=== PATIENT | female | born 1990 | race Caucasian/White ===

== ENCOUNTER → 2021-10-18 | Outpatient (CLI) | payer BC ==
[2021-10-18 13:10] VITALS: BP 132/82; PULSE 111; TEMP 98; BMI 49.6
--- NOTE | 2021-10-18 14:45 | P.HPBAR ---
Bariatric H&P - History & Physicial H&P Date: 10/18/21 History & Physicial: Visit/CC: initial clinic visit Patient initial contact: Initial weight: Initial weight in pounds: Height: 5 ft 6.5 in Initial BMI: Last weight: Current weight: 141.521 kg Current weight in pounds: 312.00 Current BMI: 49.6 [place] body weight (based on NIH guidelines): 60.101 kg Excess body weight loss: The patient is a 31 year-old F who presents for Bariatric Assessment. Patient here today to discuss surgical options for her weight loss. Patient has tried various medically supervised weight loss diets and also multiple medications without sustained weight loss. Her heaviest weight was 316. She says her lowest weight she can usually get to was about 255. Current BMI is 49.6. Patient has occasional episodes of heartburn with spicy foods. She will take Tums on the occasional basis. Denies dysphagia. Patient states she has a sleep apnea study ordered. No tobacco use. Prior surgeries include lap jayy and tonsils. Patient is interested in sleeve gastrectomy at this time. Review of Systems The patient denies any acute changes in vision or hearing, no dysphagia or odynophagia, no chest pain or shortness of breath, no dysuria or hematuria, no headache, no runny nose, no rectal bleeding or melena, no unexplained weight loss Past Medical History Past Medical History: Osteoarthritis (OA), Sleep Apnea/CPAP/BIPAP History of Any Multi-Drug Resistant Organisms: None Reported Past Surgical History: Adenoidectomy, Cholecystectomy, Tonsillectomy Past Anesthesia/Blood Transfusion Reactions: No Reported Reaction Past Psychological History: Anxiety Smoking Status: Never smoker Past Drug Use History: None Reported Surgical - Exam Vital Signs Temp Pulse BP 98 F 111 H 132/82 10/18/21 13:06 10/18/21 13:06 10/18/21 13:06 Physical exam: General: Well-developed, well-nourished HEENT: Normocephalic, sclerae nonicteric Abdomen: Nontender, nondistended Extremities: No edema Neuro: Alert and oriented Bariatric Assessment & Plan (1) Morbid obesity Narrative/Plan: 31-year-old female with morbid obesity. Surgical options including gastric bypass and sleeve gastrectomy reviewed in detail. The associate risks and benefits and expected weight loss also discussed in detail. Patient remains interested in sleeve gastrectomy at this time. Discussed options but we'll proceed with preoperative upper endoscopy in the next few months. Patient will follow up with us in the bariatric clinic following that. Status: Acute Bariatric Checklist Checklist: Plan: Checklist: EGD: 1. Hiatal hernia: 2. H. Pylori: HgbA1c: Vitamin D: Smoking: Primary care physician referral: Psychiatry clearance: Cardiology clearance: Sleep study: Diet journal: VTE risk score: VTE risk level: Rehab needs at discharge:
[2021-10-18 23:30] LABS: HCT 38.5 % (37.2-46.3); HGB 11.9 g/dL (12.0-15.0); MCH 28.5 pg (27.0-32.0); MCHC 30.9 g/dL (32.0-37.0); MCV 92.3 fL (80.0-97.0); Mean Platelet Volume 10.1 fL (9.5-12.2); NRBC Per 100 WBC 0 /100 WBCS (0.0-0.0); Platelet Count 305 X 10*3/uL (140-440); RBC 4.17 X 10*6/uL (4.10-5.20); RDW 13.8 % (11.5-14.5); WBC 13.98 X 10*3/uL (4.50-10.00)
[2021-10-19 01:04] LABS: % Iron Saturation 9.06 (12.00-45.00); ALT 18 U/L (8-44); AST 16 U/L (13-35); African American GFR (CKD) 93.3 (60.0-200.0); Albumin 4.2 g/dL (3.8-4.9); Albumin/Globulin Ratio 1.41 (1.60-3.17); Alkaline Phosphatase 69 U/L (41-126); BUN/Creat Ratio 16.63 Ratio (12.00-20.00); Blood Urea Nitrogen 15.6 mg/dL (9.0-27.0); Calcium 9.3 mg/dL (8.7-10.3); Carbon Dioxide 23.4 mmol/L (20.0-27.5); Chloride 106 mmol/L (96-109); Ferritin 77.1 ng/mL (10.0-291.0); Glucose 96 mg/dL (70-110); Iron 34 ug/dL (50-170); Non-African American GFR(CKD) 80.5 (60.0-200.0); Potassium 4.1 mmol/L (3.5-5.5); Sodium 142 mmol/L (135-145); Total Bilirubin <0.15 mg/dL (0.30-1.20); Total Iron Binding Capacity 370 ug/dL (228-460); Total Protein 7.2 g/dL (6.2-8.2)
== END | disposition home or self-care (01) ==
LOC: BARWHC3 12:19
PROVIDERS: ATTEND Surgery
DX: E66.01 Morbid (severe) obesity due to excess calories (principal); D50.8 Other iron deficiency anemias; E44.0 Moderate protein-calorie malnutrition; E55.9 Vitamin D deficiency, unspecified
CPT/HCPCS: 80053; 80307; 82306; 82607; 82728; 82746; 83540; 83550; 84425; 84443; 85027; 93005; 99202

== ENCOUNTER 2021-11-13 10:43 | Day surgery (SDC) | payer BC ==
[2021-11-09 14:55] VITALS: BMI 49.4
[~2021-11-13 10:43] MED LIST: LACTATED RINGERS 1,000 ML IV SCH; LIDOCAINE 1% (10MG/ML) FOR IV START INTRADERMA PRN; ONDANSETRON 4 MG/2 ML VIAL IVP PRN
[2021-11-13 11:39] VITALS: TEMP 98.3
[2021-11-13] MEDS ORDERED: PROPOFOL 10 MG/ML 20 ML VIAL IV ONE (12:04)
[2021-11-13] MEDS ORDERED: LIDOCAINE 2% INJ 20 MG/ML (2 ML VIAL) ONE (12:04)
--- NOTE | 2021-11-13 12:06 | P.GSHP ---
History of Present Illness H&P Date: 11/13/21 Chief Complaint: GERD 31-year-old female here today for upper endoscopy. Patient is being evaluated for sleep gastrectomy. Mild reflux at times. No dysphagia. Past Medical History Past Medical History: Osteoarthritis (OA), Sleep Apnea/CPAP/BIPAP History of Any Multi-Drug Resistant Organisms: None Reported Past Surgical History: Adenoidectomy, Cholecystectomy, Tonsillectomy Past Anesthesia/Blood Transfusion Reactions: No Reported Reaction Additional Past Anesthesia/Blood Transfusion Reaction / Comment(s): "can take longer to wake up" Past Psychological History: Anxiety Smoking Status: Never smoker Past Alcohol Use History: None Reported Past Drug Use History: None Reported Medications and Allergies Home Medications Medication Instructions Recorded Confirmed Type Phentermine HCl 37.5 mg PO DAILY 10/18/21 11/13/21 History Topiramate [Topamax] 50 mg PO DAILY 10/18/21 11/13/21 History buPROPion XL [Wellbutrin XL] 150 mg PO HS 10/18/21 11/13/21 History Allergies Allergy/AdvReac Type Severity Reaction Status Date / Time No Known Allergies Allergy Verified 11/13/21 11:16 Surgical - Exam Vital Signs Temp Pulse Resp BP Pulse Ox 98.3 F 97 16 119/60 99 11/13/21 11:15 11/13/21 11:15 11/13/21 11:15 11/13/21 11:15 11/13/21 11:15 Physical exam: General: Well-developed, well-nourished HEENT: Normocephalic, sclerae nonicteric Abdomen: Nontender, nondistended Extremities: No edema Neuro: Alert and oriented Assessment and Plan (1) GERD (gastroesophageal reflux disease) Narrative/Plan: Will proceed with upper endoscopy Current Visit: Yes Status: Acute Code(s): K21.9 - GASTRO-ESOPHAGEAL REFLUX DISEASE WITHOUT ESOPHAGITIS SNOMED Code(s): 150002395
--- NOTE | 2021-11-13 12:16 | P.PCN ---
Date of Procedure: 11/13/21 Procedure(s) Performed: Preoperative Dx: GERD, presurgical Postoperative Dx: Gastritis, small hiatal hernia, mild distal esophagitis Procedure: EGD with Bx Anesthesia: Sedation Endoscopist: Dr. Mohr Specimens: Antrum, GE junction Endoscopic Procedure: The patient was on the endoscopy table in the left de cubitus position. The Olympus gastroscope was inserted into the oropharynx and passed under direct visualization to the region of the third portion of the duodenum. From that point the scope was slowly withdrawn inspecting all surfaces carefully. There were no neoplastic inflammatory or polypoid lesions throughout the duodenum. The pylorus was widely patent. The stomach was carefully inspected. There was mild gastritis present. A biopsy of the antrum took place to rule out H. pylori. Retroflexion revealed a small sliding hiatal hernia. The GE junction was present 1.5-2 cm above the diaphragmatic hiatus. At the GE junction there was noted to be very subtle narrowing present. This did not appear to be clinically significant. There were a few small linear erosions at the GE junction and a biopsy was taken. These were short in length. The remainder the esophagus appear normal. The patient was then taken to the recovery room in stable condition per anesthesia guidelines. Recommendations: Begin antiacid therapy. Await biopsy results. Follow-up bariatric clinic.
[2021-11-13 12:56] VITALS: BP 134/74; PULSE 86; RESP 20
== END 2021-11-13 12:52 | disposition home or self-care (01) ==
LOC: ORWHC2ENDO 10:43
PROVIDERS: ATTEND Surgery
DX: K29.50 Unspecified chronic gastritis without bleeding (principal); K21.00 Gastro-esophageal reflux disease with esophagitis, without bleeding; K44.9 Diaphragmatic hernia without obstruction or gangrene; M19.90 Unspecified osteoarthritis, unspecified site; G47.30 Sleep apnea, unspecified
CPT/HCPCS: 81025; 88305; 43239; J2704; J2001

== ENCOUNTER → 2021-12-04 | Outpatient (CLI) | payer BC ==
[2021-12-04 12:43] VITALS: BP 117/87; PULSE 96; TEMP 98; BMI 49.4
--- NOTE | 2021-12-04 13:09 | P.BASOAP ---
Subjective Progress Note Date: 12/04/21 Principal diagnosis: Morbid obesity Patient returns for bariatric evaluation. She underwent recent EGD showing mild gastritis, small hiatal hernia, mild distal esophagitis. Pathology results showing some eosinophils and food related esophagitis discussed with patient. We'll hold off on oral steroids for now. She had her sleep study performed in her psychiatric evaluation. She is starting her CPAP tomorrow. Otherwise no changes to her previous history and physical. Objective - Vital Signs Vital signs: Vital Signs Temp 98 F 12/04/21 12:41 Pulse 96 12/04/21 12:41 Resp BP 117/87 12/04/21 12:41 Pulse Ox FiO2 Intake & Output 12/03/21 12/04/21 12/04/21 18:59 06:59 18:59 Weight 141.067 kg - Exam Abdomen: Soft, nontender, nondistended Assessment/Plan (1) Morbid obesity Narrative/Plan: 31-year-old female with morbid obesity and comorbidities. Surgical consent form reviewed in detail. All questions answered. We'll proceed with laparoscopic da Lupis assisted sleeve gastrectomy with possible repair hiatal hernia, possible open. The risks of bleeding, infection, stenosis, stricture, leak, abscess, fistula formation, peritonitis, poor weight loss, reflux, vomiting, conversion to an open procedure, aborting sleeve gastrectomy, NE, PE, DVT, and were discussed. The patient understands and wishes to proceed. Plan: Date: 12/04/21 Initial Weight: Initial BMI: Current Weight: 141.067 kg Current BMI: 49.4 Type of Surgery: Total Volume in Band: Previous Volume: Volume Removed: Volume Added: Band Size:
== END | disposition home or self-care (01) ==
LOC: BARWHC3 12:20
PROVIDERS: ATTEND Surgery
DX: E66.01 Morbid (severe) obesity due to excess calories (principal); Z68.42 Body mass index [BMI] 45.0-49.9, adult
CPT/HCPCS: 99211

== ENCOUNTER → 2021-12-10 | Outpatient (CLI) | payer BC ==
[2021-12-10 10:41] VITALS: BMI 49.8
== END ==
LOC: BARWHC3 08:58
PROVIDERS: ATTEND Surgery
DX: Z71.3 Dietary counseling and surveillance (principal); E66.01 Morbid (severe) obesity due to excess calories; Z68.42 Body mass index [BMI] 45.0-49.9, adult
CPT/HCPCS: 97804

== ENCOUNTER → 2022-02-20 | Outpatient (CLI) | payer BC ==
[2022-02-20 14:52] LABS: Basophils # (A) 0.06 X 10*3/uL (0.00-0.10); Basophils % (A) 0.4 %; Eosinophils # (A) 0.17 X 10*3/uL (0.04-0.35); Eosinophils % (A) 1.1 %; HCT 38.1 % (37.2-46.3); HGB 12.1 g/dL (12.0-15.0); Immature Grans, Automated 0.4 %; Lymphocytes # (A) 2.68 X 10*3/uL (0.90-5.00); MCH 28.9 pg (27.0-32.0); MCHC 31.8 g/dL (32.0-37.0); MCV 90.9 fL (80.0-97.0); Mean Platelet Volume 10.1 fL (9.5-12.2); Monocytes # (A) 0.62 X 10*3/uL (0.20-1.00); Monocytes % (A) 3.9 %; NRBC Per 100 WBC 0 /100 WBCS (0.0-0.0); Neutrophils # (A) 12.17 X 10*3/uL (1.80-7.70); Neutrophils % (A) 77.2 %; Platelet Count 358 X 10*3/uL (140-440); RBC 4.19 X 10*6/uL (4.10-5.20); RDW 13.4 % (11.5-14.5); WBC 15.77 X 10*3/uL (4.50-10.00)
[2022-02-20 16:31] LABS: African American GFR (CKD) 97.9 (60.0-200.0); Albumin 4.3 g/dL (3.8-4.9); Albumin/Globulin Ratio 1.62 (1.60-3.17); Anion Gap 10.8 mmol/L (10.00-18.00); BUN/Creat Ratio 20.2 Ratio (12.00-20.00); Blood Urea Nitrogen 18.2 mg/dL (9.0-27.0); Calcium 9.3 mg/dL (8.7-10.3); Carbon Dioxide 22.7 mmol/L (20.0-27.5); Globulin 2.6 g/dL (1.6-3.3); Non-African American GFR(CKD) 84.5 (60.0-200.0); Potassium 3.9 mmol/L (3.5-5.5); Total Bilirubin 0.2 mg/dL (0.30-1.20); Total Protein 6.9 g/dL (6.2-8.2)
== END | disposition home or self-care (01) ==
LOC: LABPAT 09:44
PROVIDERS: ATTEND Surgery
DX: Z01.812 Encounter for preprocedural laboratory examination (principal)
CPT/HCPCS: 80053; 85025

== ENCOUNTER 2022-02-25 11:51 | Observation (INO) | payer BC ==
--- NOTE | 2022-02-25 10:21 | P.GSHP ---
History of Present Illness H&P Date: 02/25/22 Chief Complaint: Morbid obesity 31-year-old female first seen in the bariatric clinic in October of last year. Patient initially presented with a BMI of 49 which was similar to her most recent visit. Patient remains interested in sleeve gastrectomy. She has tried a variety of different diets and medications without sustained weight loss. Patient has mild heartburn symptoms and recent EGD showed a small hiatal hernia and some esophagitis. No history of tobacco use. Patient diagnosed with sleep apnea and was fitted for CPAP recently. No history of DVT or dysphagia. Past Medical History Past Medical History: GERD/Reflux, Osteoarthritis (OA), Sleep Apnea/CPAP/BIPAP Additional Past Medical History / Comment(s): uses cpap, arthritis to knees. endometriosis, lasik to eyes History of Any Multi-Drug Resistant Organisms: None Reported Past Surgical History: Adenoidectomy, Cholecystectomy, Orthopedic Surgery, Tonsillectomy Additional Past Surgical History / Comment(s): scopes done to both knees, exploratory lap of abdomen found edometriosis, Past Anesthesia/Blood Transfusion Reactions: No Reported Reaction Additional Past Anesthesia/Blood Transfusion Reaction / Comment(s): "can take longer to wake up", rubia sometimes Smoking Status: Never smoker - Past Family History Father Family Medical History: Hypertension Mother Family Medical History: Thyroid Disorder Medications and Allergies Home Medications Medication Instructions Recorded Confirmed Type Phentermine HCl 37.5 mg PO DAILY 10/18/21 02/20/22 History Topiramate [Topamax] 50 mg PO DAILY 10/18/21 02/20/22 History buPROPion XL [Wellbutrin XL] 150 mg PO HS 10/18/21 02/20/22 History Omeprazole [PriLOSEC] 20 mg PO AC-BRKFST #90 cap 11/13/21 02/20/22 Rx Unk Multi Vitamin 1 tab PO DAILY 02/20/22 02/20/22 History Allergies Allergy/AdvReac Type Severity Reaction Status Date / Time No Known Allergies Allergy Verified 02/20/22 12:23 Surgical - Exam Physical exam: General: Well-developed, well-nourished HEENT: Normocephalic, sclerae nonicteric Abdomen: Nontender, nondistended Extremities: No edema Neuro: Alert and oriented Assessment and Plan (1) Morbid obesity Narrative/Plan: 31-year-old female with morbid obesity and associated comorbidities. Patient also with recent upper endoscopy suggesting small hiatal hernia. We'll proceed with laparoscopic da Lupis assisted sleeve gastrectomy with possible hiatal hernia repair. The risks of bleeding, infection, stenosis, stricture, leak, abscess, fistula formation, peritonitis, poor weight loss, reflux, vomiting, conversion to an open procedure, aborting sleeve gastrectomy, [place], PE, DVT, and were discussed. The patient understands and wishes to proceed. Status: Acute Code(s): E66.01 - MORBID (SEVERE) OBESITY DUE TO EXCESS CALORIES SNOMED Code(s): 875061932
[~2022-02-25 11:51] MED LIST changes: +ACETAMINOPHEN TAB 500 MG TAB PO PRN; +ENOXAPARIN 40 MG/0.4 ML SYRINGE SQ PRN; +HYDROmorphone 0.5 MG/0.5 ML SYRINGE IVP PRN; -LACTATED RINGERS 1,000 ML IV SCH
[2022-02-25] MEDS: LACTATED RINGERS 1,000 ML IV SCH (12:38)
[2022-02-25] MEDS ORDERED: DEXAMETHASONE SOD PHOSPHATE 4 MG/ML 1 ML VIAL IVP ONE (12:39)
[2022-02-25] MEDS ORDERED: BUPIVACAIN-EPI 0.25%-1:200,000 30 ML VIAL SQ ONE (12:49)
[2022-02-25] MEDS ORDERED: MIDAZOLAM 2 MG/2 ML VIAL ONE (12:55)
[2022-02-25] MEDS ORDERED: WATER FOR INJECTION, STERILE 10 ML VIAL IV ONE (12:55)
[2022-02-25] MEDS ORDERED: ROCURONIUM 10 MG/ML (5 ML VIAL) IV ONE (12:55)
[2022-02-25] MEDS ORDERED: GLYCOPYRROLATE 0.2 MG/ML 2 ML VIAL ONE (12:55)
[2022-02-25] MEDS ORDERED: ePHEDrine 50 MG/ML 1 ML VIAL ONE (12:55)
[2022-02-25] MEDS ORDERED: SUCCINYLCHOLINE CHLORIDE 200 MG/10 ML VIAL IV ONE (12:55)
[2022-02-25] MEDS ORDERED: PHENYLEPHRINE-0.9% NACL SYG 1,000 MCG/10 ML SYRINGE ONE (12:55)
[2022-02-25] MEDS ORDERED: PROPOFOL 10 MG/ML 20 ML VIAL IV ONE (12:55)
[2022-02-25] MEDS ORDERED: LIDOCAINE 2% INJ 20 MG/ML (2 ML VIAL) ONE (12:55)
[2022-02-25] MEDS ORDERED: HYDROmorphone (PF) 1 MG/ML ONE (12:55)
[2022-02-25] MEDS ORDERED: KETAMINE 10 MG/ML 20 ML VIAL ONE (12:55)
[2022-02-25] MEDS ORDERED: NEOSTIGMINE 1 MG/ML 10 ML VIAL ONE (12:55)
[2022-02-25] MEDS ORDERED: fentaNYL (PF) 50 MCG/ML 2 ML AMP ONE (12:55)
[2022-02-25] MEDS: ceFAZolin 3 GM in SODIUM CHLORIDE 0.9% 100 ML IVPB PRN ×2 (12:58→13:28)
[2022-02-25] MEDS ORDERED: LACTATED RINGERS 1,000 ML IV ONE (13:28)
[2022-02-25] MEDS ORDERED: HYOSCYAMINE ORAL DROPS 1.875 MG/15 ML BOTTLE PO PRN (15:47)
[2022-02-25] MEDS ORDERED: NALOXONE 0.4 MG/ML 1 ML VIAL IV PRN (15:47)
[2022-02-25] MEDS ORDERED: ONDANSETRON 4 MG/2 ML VIAL IVP PRN (15:47)
[2022-02-25] MEDS ORDERED: HYDROmorphone 0.5 MG/0.5 ML SYRINGE IVP PRN (15:47)
[2022-02-25] MEDS ORDERED: diphenhydrAMINE 50 MG/ML 1 ML VIAL IVP PRN (15:47)
--- NOTE | 2022-02-25 15:57 | P.OP ---
Date of Procedure: 02/25/22 Procedure(s) Performed: PREOPERATIVE DIAGNOSIS: Morbid obesity, GERD, sleep apnea, hiatal hernia POSTOPERATIVE DIAGNOSIS: Same PROCEDURE: Da Lupis assisted laparoscopic sleeve gastrectomy, repair hiatal hernia SURGEON: Fani EBL: Minimal ANESTHESIA: General COMPLICATIONS: None OPERATIVE PROCEDURE: Patient was placed in the operating table in the supine position. The patient was then placed under general anesthesia at that time. The abdomen was prepped and draped in the usual sterile fashion. A 5 mm optical trocar was placed in the left upper quadrant 20 cm inferior to the xiphoid process. Insufflation took place up to 15 mmHg. No adhesions were seen. A 5 mm subxiphoid incision was made and the medium Amna retractor was used to elevate the left lobe of liver anteriorly. This was held in place using the fixed arm retractor. An additional 12 mm trocar was placed in the right paramedian location and 2 additional 8 mm trochars were placed in the left upper quadrant one medial and one lateral to the initially placed optical trocar. All of these trochars were placed along the same plane. The initial 5 was then switched to an 8 mm trocar. The robot was then docked appropriately. The 8 mm camera was placed in the left paramedian trocar site down viewing. A fenestrated bipolar was placed in arm 1, arm 3 had the vessel sealer, arm 4 had the small grasper retractor. The hiatus was inspected and there indeed I'll hernia present as suspected on preoperative EGD. The greater curvature the stomach was first addressed. The short gastric vasculature were divided using the vessel sealer. This dissection took place distally until we were 4 cm from the pylorus. The posterior adhesions were divided as well. The dissection then took place proximally along the stomach until the posterior short gastrics were divided and the fundus of the stomach was fully mobilized. At that time the hepato-gastric ligament was divided. There was a small accessory left hepatic vessel that was divided using the robotic clip television station manager. The hiatus was fully dissected circumferentially. Dissection took place a proximal 4-5 cm above the hiatus. Once this was fully mobilized the posterior crura was reapproximated using a nonabsorbable 20V lock suture. Care was taken to avoid narrowing at the hiatus. The 40-S[place] Arabian dilator had been advanced into the stomach. Stapling then ensued. The patient's stomach by palpation seemed to be of average thickness. No buttressing was utilized. A total of 2 sure formed green load and 4 blue load staple loads were used. We started approximately for 7 m from the pylorus. The stomach was then placed in the right upper quadrant after it was fully excised. The staple line was inspected. There was no evidence of bleeding. A methylene blue leak test did not take place in this case. Tisseel fibrin glue was then used along the length of the staple line. The robot was then undocked. The da Lupis laparoscope was used and the stomach was removed from the 12 mm trocar site without difficulty. The fascia at the 12mm site was closed using [id number] 0 Vicryl sutures with the laparoscopic suture passer and Dhaval Duglas technique. The insufflation was evacuated. The skin at all 5 incisions were closed using 4-0 Monocryl sutures. Skin glue was then applied. DISPOSITION: Stable to recovery room
[2022-02-25] MEDS: 0.9% NACL WITH KCL 20 MEQ/L 1,000 ML IV SCH (17:42)
[2022-02-25] MEDS: ACETAMINOPHEN IV (For NPO) 1,000 MG in EMPTY BAG 1 BAG IVPB SCH (17:53)
[2022-02-25] MEDS: SIMETHICONE 40 MG/0.6 ML DROPS 2,000 MG/30 ML BOTTLE PO PRN (19:16)
[2022-02-25] MEDS: ALBUTEROL NEBULIZED 2.5 MG/3 ML INHALATION SCH ×2 (19:44→20:01)
[2022-02-25] MEDS: HYDROmorphone 1 MG/ML 1 ML SYRINGE IVP PRN (21:23)
[2022-02-26] MEDS: ACETAMINOPHEN IV (For NPO) 1,000 MG in EMPTY BAG 1 BAG IVPB SCH ×4 (00:27→18:24)
[2022-02-26] MEDS: SIMETHICONE 40 MG/0.6 ML DROPS 2,000 MG/30 ML BOTTLE PO PRN ×3 (00:28→16:43)
[2022-02-26] MEDS: HYDROmorphone 1 MG/ML 1 ML SYRINGE IVP PRN ×2 (02:22→09:39)
[2022-02-26] MEDS: ENOXAPARIN 40 MG/0.4 ML SYRINGE SQ SCH ×2 (02:23→15:26)
[2022-02-26] MEDS: 0.9% NACL WITH KCL 20 MEQ/L 1,000 ML IV SCH (05:04)
[2022-02-26] MEDS: LACTATED RINGERS 1,000 ML IV SCH (06:12)
[2022-02-26] MEDS: ALBUTEROL NEBULIZED 2.5 MG/3 ML INHALATION SCH ×4 (08:05→20:41)
[2022-02-26 09:01] LABS: Basophils # (A) 0.02 X 10*3/uL (0.00-0.10); Basophils % (A) 0.1 %; Eosinophils # (A) 0.01 X 10*3/uL (0.04-0.35); Eosinophils % (A) 0.1 %; HCT 36.3 % (37.2-46.3); HGB 11.2 g/dL (12.0-15.0); Immature Grans, Automated 0.7 %; Lymphocytes # (A) 1.45 X 10*3/uL (0.90-5.00); MCH 27.9 pg (27.0-32.0); MCHC 30.9 g/dL (32.0-37.0); MCV 90.5 fL (80.0-97.0); Mean Platelet Volume 10.2 fL (9.5-12.2); Monocytes # (A) 0.72 X 10*3/uL (0.20-1.00); Monocytes % (A) 4.5 %; NRBC Per 100 WBC 0 /100 WBCS (0.0-0.0); Neutrophils # (A) 13.78 X 10*3/uL (1.80-7.70); Neutrophils % (A) 85.6 %; Platelet Count 303 X 10*3/uL (140-440); RBC 4.01 X 10*6/uL (4.10-5.20); RDW 13.5 % (11.5-14.5); WBC 16.09 X 10*3/uL (4.50-10.00)
[2022-02-26 09:18] LABS: Magnesium 2.1 mg/dL (1.5-2.4)
[2022-02-26 09:19] VITALS: BMI 48.6
[2022-02-26 09:20] LABS: African American GFR (CKD) 113.1 (60.0-200.0); Anion Gap 12.7 mmol/L (10.00-18.00); Blood Urea Nitrogen 12.5 mg/dL (9.0-27.0); Calcium 8.6 mg/dL (8.7-10.3); Carbon Dioxide 20.3 mmol/L (20.0-27.5); Non-African American GFR(CKD) 97.6 (60.0-200.0); Phosphorus 3.9 mg/dL (2.4-5.1); Potassium 4.7 mmol/L (3.5-5.5)
[2022-02-26] MEDS: PANTOPRAZOLE 40 MG/10 ML VIAL IV SCH (09:40)
[2022-02-26] MEDS: 1: THIAMINE 100 MG, FOLIC ACID 1 MG, POTASSIUM CHLORIDE 20 MEQ in SODIUM CHLORIDE 0.9% 1 IVPB SCH ×10 (10:22→18:27)
[2022-02-26] MEDS: KETOROLAC 15 MG/ML 1 ML VIAL IVP SCH ×3 (10:23→18:25)
--- NOTE | 2022-02-26 11:06 | FL ---
SINGLE CONTRAST UPPER GI EXAMINATION: DATE: 02/26/2022 CLINICAL HISTORY: 31-year-old female postop bariatric surgery, spleen gastrectomy and hiatal hernia repair yesterday. TECHNIQUE: Single contrast exam performed with 50 ml Isovue-370 contrast. Total fluoroscopy time: 1 minute 3 seconds Total images: 25. FINDINGS: The patient swallowed oral contrast without difficulty or delay. Esophageal peristalsis and motility are within normal limits. There is prompt passage of contrast from esophagus into the left. There ar e postsurgical changes of sleeve gastrectomy demonstrated. No hiatal hernia is identified. There is g ood flow of contrast along the course of the gastric sleeve. No evidence of contrast extravasation to suggest leak. Contrast passes into the duodenum. Trace postsurgical free air noted below the right h emidiaphragm. IMPRESSION: No evidence of leak or significant obstruction status post hiatal hernia repair and sleeve gastrectom y. Trace post surgical free air on the right.
--- NOTE | 2022-02-26 13:22 | P.CONS ---
History of Present Illness - Reason for Consult Consult date: 02/26/22 - History of Present Illness History of present illness; patient is a 31-year-old lady with past medical significant for GERD, reflux, OA presented to the hospital for elective laparoscopic assisted sleeve gastrectomy with possible hiatal hernia. Patient is being followed up outpatient with the bariatric clinic. Patient had recent EGD done that showed small hiatal hernia and esophagitis. Patient was seen postoperatively for medical management. Currently patient is complaining of gas-like sensation in her stomach, complaining of some nausea. Complaining of abdominal pain. Denies any chest pain or shortness of breath. Patient is hemodynamically stable with blood pressure 114/67, respiratory rate 15, heart rate of 64 REVIEW OF SYSTEMS: CONSTITUTIONAL: No fever, no malaise, no fatigue. HEENT: No recent visual problems or hearing problems. Denied any sore throat. CARDIOVASCULAR: No chest pain, orthopnea, PND, no palpitations, no syncope. PULMONARY: No shortness of breath, no cough, no hemoptysis. GASTROINTESTINAL: As mentioned in HPI NEUROLOGICAL: No headaches, no weakness, no numbness. HEMATOLOGICAL: Denies any bleeding or petechiae. GENITOURINARY: Denies any burning micturition, frequency, or urgency. MUSCULOSKELETAL/RHEUMATOLOGICAL: Denies any joint pain, swelling, or any muscle pain. ENDOCRINE: Denies any polyuria or polydipsia. The rest of the 14-point review of systems is negative. PHYSICAL EXAMINATION: GENERAL: The patient is alert and oriented x3, not in any acute distress. Well developed, well nourished. HEENT: Pupils are round and equally reacting to light. EOMI. No scleral icterus. No conjunctival pallor. Normocephalic, atraumatic. No pharyngeal erythema. No thyromegaly. CARDIOVASCULAR: S1 and S2 present. No murmurs, rubs, or gallops. PULMONARY: Chest is clear to auscultation, no wheezing or crackles. ABDOMEN: Soft, nontender, nondistended, normoactive bowel sounds. No palpable organomegaly. MUSCULOSKELETAL: No joint swelling or deformity. EXTREMITIES: No cyanosis, clubbing, or pedal edema. NEUROLOGICAL: Gross neurological examination did not reveal any focal deficits. SKIN: No rashes. Assessment and plan Status post laparoscopic da Lupis assisted sleeve gastrectomy with hiatal hernia repair Obesity Esophagitis GERD Sleep apnea Plan Continue postop management per general surgery Continue antiemetics Advance diet per surgery Resume home meds Past Medical History Past Medical History: GERD/Reflux, Osteoarthritis (OA), Sleep Apnea/CPAP/BIPAP Additional Past Medical History / Comment(s): uses cpap, arthritis to knees. endometriosis, lasik to eyes History of Any Multi-Drug Resistant Organisms: None Reported Past Surgical History: Adenoidectomy, Cholecystectomy, Orthopedic Surgery, Tonsillectomy Additional Past Surgical History / Comment(s): scopes done to both knees, exploratory lap of abdomen found edometriosis, Past Anesthesia/Blood Transfusion Reactions: No Reported Reaction Additional Past Anesthesia/Blood Transfusion Reaction / Comm: "can take longer to wake up", rubia sometimes Past Psychological History: Anxiety, Depression Smoking Status: Never smoker Past Alcohol Use History: Occasional Past Drug Use History: None Reported - Past Family History Father Family Medical History: Hypertension Mother Family Medical History: Thyroid Disorder Medications and Allergies Home Medications Medication Instructions Recorded Confirmed Type Phentermine HCl 37.5 mg PO DAILY 10/18/21 02/25/22 History Topiramate [Topamax] 50 mg PO DAILY 10/18/21 02/25/22 History buPROPion XL [Wellbutrin XL] 150 mg PO HS 10/18/21 02/25/22 History Omeprazole [PriLOSEC] 20 mg PO AC-BRKFST #90 cap 11/13/21 02/25/22 Rx Unk Multi Vitamin 1 tab PO DAILY 02/20/22 02/25/22 History Allergies Allergy/AdvReac Type Severity Reaction Status Date / Time No Known Allergies Allergy Verified 02/25/22 12:09 Physical Exam Vitals: Vital Signs Temp Pulse Resp BP Pulse Ox 02/26/22 07:10 98.3 F 64 15 114/67 100 02/26/22 04:43 97.7 F 77 16 111/72 100 02/25/22 19:27 97.4 F L 67 17 118/74 98 02/25/22 17:42 81 133/97 96 02/25/22 17:27 72 122/79 96 02/25/22 17:12 71 119/74 98 02/25/22 16:57 66 130/75 97 02/25/22 16:45 79 20 129/53 95 02/25/22 16:30 78 20 124/55 96 02/25/22 16:15 75 20 120/59 94 L 02/25/22 16:00 83 20 107/53 97 02/25/22 15:50 97 F L 86 20 121/59 97 Intake and Output 02/25/22 02/26/22 02/26/22 22:59 06:59 14:59 Intake Total 50 Output Total 20 Balance 30 Intake: IV 50 Output: Estimated Blood Loss 20 Other: Voiding Method Toilet # Voids 1 3 Weight 136.8 kg 136.8 kg Results CBC & Chem 7: 02/26/22 04:29 02/26/22 04:29 Labs: Abnormal Lab Results - Last 24 Hours (Table) 02/26/22 02/26/22 Range/Units 04:29 04:29 WBC 16.09 H (4.50-10.00) X 10*3/uL RBC 4.01 L (4.10-5.20) X 10*6/uL Hgb 11.2 L (12.0-15.0) g/dL Hct 36.3 L (37.2-46.3) % MCHC 30.9 L (32.0-37.0) g/dL Immature Gran # 0.11 H (0.00-0.04) X 10*3/uL Neutrophils # 13.78 H (1.80-7.70) X 10*3/uL Eosinophils # 0.01 L (0.04-0.35) X 10*3/uL Calcium 8.6 L (8.7-10.3) mg/dL
--- NOTE | 2022-02-26 16:21 | P.PN ---
Subjective Progress Note Date: 02/26/22 Principal diagnosis: Morbid obesity Patient feels better this afternoon. Yesterday evening the patient had neck and shoulder pain. Now she is having mild abdominal discomfort and back pain. Upper GI shows no leak or obstruction. Labs noted. Mild leukocytosis. No nausea or vomiting. Objective - Vital Signs Vital signs: Vital Signs Temp 97.6 F 02/26/22 14:00 Pulse 61 02/26/22 14:00 Resp 19 02/26/22 14:00 BP 117/74 02/26/22 14:00 Pulse Ox 97 02/26/22 14:00 FiO2 Intake & Output 02/25/22 02/26/22 02/26/22 18:59 06:59 18:59 Intake Total 1400 Output Total 20 Balance 1380 Weight 136.8 kg 136.8 kg Intake: IV 1400 Output: Estimated Blood Loss 20 Other: Voiding Method Toilet # Voids 3 - Exam Abdomen: Soft, nondistended, mild incisional tenderness, incisions clean and dry - Labs CBC & Chem 7: 02/26/22 04:29 02/26/22 04:29 Labs: Abnormal Lab Results - Last 24 Hours (Table) 02/26/22 02/26/22 Range/Units 04:29 04:29 WBC 16.09 H (4.50-10.00) X 10*3/uL RBC 4.01 L (4.10-5.20) X 10*6/uL Hgb 11.2 L (12.0-15.0) g/dL Hct 36.3 L (37.2-46.3) % MCHC 30.9 L (32.0-37.0) g/dL Immature Gran # 0.11 H (0.00-0.04) X 10*3/uL Neutrophils # 13.78 H (1.80-7.70) X 10*3/uL Eosinophils # 0.01 L (0.04-0.35) X 10*3/uL Calcium 8.6 L (8.7-10.3) mg/dL Assessment and Plan (1) Morbid obesity Narrative/Plan: 31-year-old female doing fairly well after laparoscopic sleeve gastrectomy yesterday. Slight increased discomfort from the hiatal hernia repair none expected. Begin bariatric clear liquids. Continue ambulation. Monitor oral intake. Agree with adding Toradol for pain control. Check CBC tomorrow. Current Visit: Yes Status: Acute Code(s): E66.01 - MORBID (SEVERE) OBESITY DUE TO EXCESS CALORIES SNOMED Code(s): 248764049
[2022-02-26] MEDS ORDERED: buPROPion XL 150 MG TAB.ER.24H PO SCH (21:00)
[2022-02-27] MEDS: KETOROLAC 15 MG/ML 1 ML VIAL IVP SCH ×3 (00:24→12:02)
[2022-02-27] MEDS: ACETAMINOPHEN IV (For NPO) 1,000 MG in EMPTY BAG 1 BAG IVPB SCH ×3 (00:25→12:03)
[2022-02-27] MEDS: ENOXAPARIN 40 MG/0.4 ML SYRINGE SQ SCH ×2 (01:24→15:04)
[2022-02-27 01:52] VITALS: RESP 18
[2022-02-27] MEDS: 1: THIAMINE 100 MG, FOLIC ACID 1 MG, POTASSIUM CHLORIDE 20 MEQ in SODIUM CHLORIDE 0.9% 1 IVPB SCH ×5 (04:53)
[2022-02-27] MEDS: LACTATED RINGERS 1,000 ML IV SCH (05:27)
[2022-02-27 06:10] LABS: Basophils % (A) 0 %; Eosinophils # (A) 0.1 k/uL (0-0.7); Eosinophils % (A) 1 %; HCT 33.7 % (34.0-46.0); HGB 10.8 gm/dL (11.4-16.0); Lymphocytes # (A) 2.4 k/uL (1.0-4.8); Lymphocytes % (A) 25 %; MCH 28.8 pg (25.0-35.0); MCHC 32.1 g/dL (31.0-37.0); MCV 89.8 fL (80.0-100.0); Monocytes # (A) 0.4 k/uL (0-1.0); Monocytes % (A) 4 %; Neutrophils # (A) 6.8 k/uL (1.3-7.7); Neutrophils % (A) 69 %; Platelet Count 223 k/uL (150-450); RBC 3.75 m/uL (3.80-5.40); WBC 9.8 k/uL (3.8-10.6)
[2022-02-27] MEDS ORDERED: PANTOPRAZOLE 40 MG TABLET PO SCH (07:30)
[2022-02-27] MEDS ORDERED: bisacodyL 5 MG TABLET.DR PO PRN (08:00)
[2022-02-27] MEDS: PANTOPRAZOLE 40 MG/10 ML VIAL IV SCH (08:23)
[2022-02-27] MEDS: ALBUTEROL NEBULIZED 2.5 MG/3 ML INHALATION SCH ×2 (08:35→11:13)
[2022-02-27] MEDS ORDERED: PHENTERMINE HCL 37.5 MG PO SCH (09:00)
[2022-02-27] MEDS ORDERED: TOPIRAMATE 25 MG TAB PO SCH (09:00)
--- NOTE | 2022-02-27 12:19 | P.DS ---
Providers Date of admission: 02/26/22 08:29 Expected date of discharge: 02/27/22 Attending physician: Alexis Mohr Consults: 02/25/22 15:47 Consult Physician Routine Consulting Provider: Nabil White Consult Reason/Comments: med mgmt Do you want consulting provider notified?: Yes Primary care physician: Attila Kang - Discharge Diagnosis(es) (1) Morbid obesity 31-year-old female doing well today. Underwent laparoscopic sleeve gastrectomy with repair hiatal hernia 2 days ago. Postoperatively the patient's pain and nausea have improved. She would like to go home today. She is doing fairly well with her oral intake and as ingested approximately 15 ounces of liquid so far. Patient is confident she'll be able to drink another 20-30 ounces for the rest of the day. Incisions are clean and dry. June discharge. Follow-up Friday in bariatric center. Current Visit: Yes Status: Acute Plan - Discharge Summary Discharge Rx Participant: Yes New Discharge Prescriptions: Continue Topiramate [Topamax] 50 mg PO DAILY Phentermine HCl 37.5 mg PO DAILY Omeprazole [PriLOSEC] 20 mg PO AC-BRKFST #90 cap Unk Multi Vitamin 1 tab PO DAILY buPROPion XL [Wellbutrin XL] 150 mg PO HS Discharge Medication List Phentermine HCl 37.5 mg PO DAILY 10/18/21 [History] Topiramate [Topamax] 50 mg PO DAILY 10/18/21 [History] buPROPion XL [Wellbutrin XL] 150 mg PO HS 10/18/21 [History] Omeprazole [PriLOSEC] 20 mg PO AC-BRKFST #90 cap 11/13/21 [Rx] Unk Multi Vitamin 1 tab PO DAILY 02/20/22 [History]
[2022-02-27 14:53] VITALS: BP 121/78; PULSE 64; TEMP 97.9
--- NOTE | 2022-02-27 17:54 | P.PN ---
Progress Note - Text Progress Note Date: 02/27/22 History of present illness; patient is a 31-year-old lady with past medical significant for GERD, reflux, OA presented to the hospital for elective laparoscopic assisted sleeve gastrectomy with possible hiatal hernia. Patient is being followed up outpatient with the [facility]. Patient had recent EGD done that showed small hiatal hernia and esophagitis. Patient was seen postoperatively for medical management. Currently patient is complaining of gas-like sensation in her stomach, complaining of some nausea. Complaining of abdominal pain. Denies any chest pain or shortness of breath. Patient is hemodynamically stable with blood pressure 114/67, respiratory rate 15, heart rate of 64 02/27/2022: I assumed care of the patient today. Sitting up in a chair. No nausea vomiting. Did tolerate a liquid diet. Did pass flatus. Did ambulate. Patient at home was on adipex and Topamax for weight loss.-Have discussed with the patient to hold the same until follow-up with PCP. Questions answered Current medications reviewed On examination: VITAL SIGNS: [98.7, 89, 18, 134/81, 95% room air] GENERAL APPEARANCE: BMI 48.7, sitting up in a chair comfortable HEENT: Normal external appearance of nose and ear. Oral cavity normal EYES: Pupils equal. Conjunctiva normal. NECK: JVD not raised. Mass not palpable. RESPIRATORY: Respiratory effort normal. Lungs clear to auscultation. CARDIOVASCULAR: First and second sounds normal. No edema. ABDOMEN: Soft. Liver and spleen not palpable. Minimal tenderness. No mass palpable. PSYCHIATRY: Alert and oriented x3. Mood and affect normal. INVESTIGATIONS, reviewed in the clinical context: White count 9.8 he will globin 10.8 platelets 223 potassium 4.7 creatinine 0.8 Assessment and plan: -Status post laparoscopic da Lupis assisted sleeve gastrectomy with hiatal hernia repair On liquid diet -Morbid Obesity BMI 48.7 Weight loss measures. Hold Adipex and Topamax -Esophagitis Prilosec -GERD Prilosec -Obstructive Sleep apnea Use CPAP Thank you
== END 2022-02-27 14:55 | disposition home or self-care (01) ==
LOC: OR 11:51 → 4SSUR 15:58 → OR 02-26 08:29 → 4SSUR 02-26 08:29
PROVIDERS: ADMIT Surgery; ATTEND Surgery
DX: E66.01 Morbid (severe) obesity due to excess calories (principal); Z68.42 Body mass index [BMI] 45.0-49.9, adult; K44.9 Diaphragmatic hernia without obstruction or gangrene; K29.50 Unspecified chronic gastritis without bleeding; R12 Heartburn; K21.00 Gastro-esophageal reflux disease with esophagitis, without bleeding; G47.33 Obstructive sleep apnea (adult) (pediatric); M17.0 Bilateral primary osteoarthritis of knee; Z98.890 Other specified postprocedural states; Z82.49 Family history of ischemic heart disease and other diseases of the circulatory system; Z83.49 Family history of other endocrine, nutritional and metabolic diseases; Z79.899 Other long term (current) drug therapy
CPT/HCPCS: 43281; 43775; S2900; 74240; 80051; 81025; 82310; 82565; 83735; 84100; 84520; 85025; 86850; 86900; 86901; 88307

== ENCOUNTER → 2022-03-01 | Outpatient (CLI) | payer BC ==
[2022-03-01 10:41] VITALS: BP 119/78; PULSE 85; RESP 13; TEMP 98.7; BMI 46.5
== END ==
LOC: BARWHC3 09:59
PROVIDERS: ATTEND Surgery
DX: Z53.9 Procedure and treatment not carried out, unspecified reason (principal)
CPT/HCPCS: 99211

== ENCOUNTER → 2022-03-05 | Outpatient (CLI) | payer BC ==
[2022-03-05 15:17] VITALS: BP 104/74; PULSE 112; RESP 16; TEMP 98.8; BMI 45.9
--- NOTE | 2022-03-05 15:59 | P.BASOAP ---
Subjective Progress Note Date: 03/05/22 Principal diagnosis: Morbid obesity Patient returns after sleeve gastrectomy last week. Doing well. Drinking about 64 ounces of liquids daily. Over 100 g of protein daily. She is doing 3 30 gram protein shakes per day. Only has mild pain at the extraction site in the right abdomen. No fevers. Heart rate was 112 but she says she was late for her visit. When it was rechecked it was 90. Objective - Vital Signs Vital signs: Vital Signs Temp 98.8 F 03/05/22 15:12 Pulse 112 H 03/05/22 15:12 Resp 16 03/05/22 15:12 BP 104/74 03/05/22 15:12 Pulse Ox FiO2 Intake & Output 03/04/22 03/05/22 03/05/22 18:59 06:59 18:59 Weight 131.088 kg - Exam Abdomen: Soft, nondistended, incisions clean and dry, minimal tenderness Assessment/Plan (1) Morbid obesity Narrative/Plan: Patient doing well following recent sleeve gastrectomy. Gradually advance diet. Continue antiacid therapy. Continue monitoring liquid and protein intake. Follow-up 2-3 weeks. Check one month labs at that time. Plan: Date: 03/05/22 Initial Weight: 141.691 kg Initial BMI: 49.6 Current Weight: 131.088 kg Current BMI: 45.9 Type of Surgery: Vertical Sleeve Gastrectomy Total Volume in Band: Previous Volume: Volume Removed: Volume Added: Band Size:
== END ==
LOC: BARWHC3 15:05
PROVIDERS: ATTEND Surgery
DX: E66.01 Morbid (severe) obesity due to excess calories (principal); Z68.42 Body mass index [BMI] 45.0-49.9, adult; Z71.3 Dietary counseling and surveillance; Z46.51 Encounter for fitting and adjustment of gastric lap band; Z98.84 Bariatric surgery status
CPT/HCPCS: 97802; 99211

== ENCOUNTER → 2022-05-21 | Outpatient (CLI) | payer BC ==
[2022-05-21 14:21] VITALS: BP 128/60; PULSE 69; RESP 16; TEMP 98.2; BMI 39.6
--- NOTE | 2022-05-21 16:34 | P.BASOAP ---
Subjective Progress Note Date: 05/21/22 Principal diagnosis: Morbid obesity Patient returns for recheck. Last seen 04/16. Underwent sleeve gastrectomy in February. Patient says she had pizza and let us lead to occlusion and she has been cautious with her diet because of that. She has lost 18 pounds since her last visit. She is exercising frequently. She is due for 3 month labs Objective - Vital Signs Vital signs: Vital Signs Temp 98.2 F 05/21/22 14:18 Pulse 69 05/21/22 14:18 Resp 16 05/21/22 14:18 BP 128/60 05/21/22 14:18 Pulse Ox FiO2 Intake & Output 05/20/22 05/21/22 05/21/22 18:59 06:59 18:59 Weight 112.945 kg - Exam Abdomen: Soft, nontender, nondistended Assessment/Plan (1) Morbid obesity Narrative/Plan: 32-year-old female doing well after prior sleeve gastrectomy. Continue dietary and exercise regimen. Check three-month labs. Follow-up 6-8 weeks. Plan: Date: 05/21/22 Initial Weight: 141.691 kg Initial BMI: 49.6 Current Weight: 112.945 kg Current BMI: 39.6 Type of Surgery: Vertical Sleeve Gastrectomy Total Volume in Band: Previous Volume: Volume Removed: Volume Added: Band Size:
[2022-05-21 20:06] LABS: HCT 40.7 % (37.2-46.3); HGB 12.9 g/dL (12.0-15.0); MCH 29.3 pg (27.0-32.0); MCHC 31.7 g/dL (32.0-37.0); MCV 92.3 fL (80.0-97.0); Mean Platelet Volume 11.8 fL (9.5-12.2); NRBC Per 100 WBC 0 /100 WBCS (0.0-0.0); Platelet Count 276 X 10*3/uL (140-440); RBC 4.41 X 10*6/uL (4.10-5.20)
[2022-05-21 20:17] LABS: African American GFR (CKD) 101.2 (60.0-200.0); Albumin 4.5 g/dL (3.8-4.9); Albumin/Globulin Ratio 1.72 (1.60-3.17); Anion Gap 8.9 mmol/L (10.00-18.00); BUN/Creat Ratio 15.94 Ratio (12.00-20.00); Blood Urea Nitrogen 13.9 mg/dL (9.0-27.0); Calcium 9.9 mg/dL (8.7-10.3); Carbon Dioxide 24.6 mmol/L (20.0-27.5); Globulin 2.6 g/dL (1.6-3.3); Non-African American GFR(CKD) 87.3 (60.0-200.0); Potassium 4.6 mmol/L (3.5-5.5); Total Bilirubin 0.4 mg/dL (0.30-1.20); Total Protein 7.1 g/dL (6.2-8.2)
== END ==
LOC: BARWHC3 13:52
PROVIDERS: ATTEND Surgery
DX: E66.01 Morbid (severe) obesity due to excess calories (principal); E55.9 Vitamin D deficiency, unspecified; K90.89 Other intestinal malabsorption; Z98.84 Bariatric surgery status; Z68.39 Body mass index [BMI] 39.0-39.9, adult
CPT/HCPCS: 80053; 82306; 82607; 82746; 83540; 84425; 85027; 97803; 99211

== ENCOUNTER → 2022-07-16 | Outpatient (CLI) | payer BC ==
[2022-07-16 15:01] VITALS: BP 102/68; PULSE 62; RESP 16; TEMP 98.4; BMI 37.2
--- NOTE | 2022-07-16 15:23 | P.BASOAP ---
Subjective Progress Note Date: 07/16/22 Principal diagnosis: Morbid obesity 32-year-old female returns for reevaluation. Overall doing fairly well. She has lost 15 pounds in the last 2 months. Her 3 months labs looked good last visit. She said she felt stalled for a bit but weight loss resumed 1-2 weeks ago. She is exercising with weights and elliptical 3-4 times per week. She has had some lightheadedness when standing. She has checked her blood pressure and says was normal. She is not taking any heart or blood pressure medications. Still on PPI 40 mg per day. No heartburn. Objective - Vital Signs Vital signs: Vital Signs Temp 98.4 F 07/16/22 14:58 Pulse 62 07/16/22 14:58 Resp 16 07/16/22 14:58 BP 102/68 07/16/22 14:58 Pulse Ox FiO2 Intake & Output 07/15/22 07/16/22 07/16/22 18:59 06:59 18:59 Weight 106.141 kg - Exam Abdomen: Soft, nontender, nondistended Assessment/Plan (1) Morbid obesity Narrative/Plan: Overall patient doing fairly well. Continue dietary and exercise regimen. Follow-up with primary care regarding lightheadedness. We will switch to PPI 20 mg omeprazole once daily. Follow-up 6-8 weeks. Check 6 month labs at that time. Plan: Date: 07/16/22 Initial Weight: 141.691 kg Initial BMI: 49.6 Current Weight: 106.141 kg Current BMI: 37.2 Type of Surgery: Vertical Sleeve Gastrectomy Total Volume in Band: Previous Volume: Volume Removed: Volume Added: Band Size:
== END ==
LOC: BARWHC3 14:24
PROVIDERS: ATTEND Surgery
DX: E66.01 Morbid (severe) obesity due to excess calories (principal); Z68.37 Body mass index [BMI] 37.0-37.9, adult; Z98.84 Bariatric surgery status
CPT/HCPCS: 99211

== ENCOUNTER → 2022-09-10 | Outpatient (CLI) | payer BC ==
[2022-09-10 21:52] LABS: HCT 39.1 % (37.2-46.3); HGB 12.4 d/dL (12.0-15.0); MCH 29.4 pg (27.0-32.0); MCHC 31.7 d/dL (32.0-37.0); MCV 92.7 FL (80.0-97.0); Mean Platelet Volume 11.5 FL (9.5-12.2); NRBC Per 100 WBC 0 X 10*3/uL (0.00-0.01); Platelet Count 262 X 10*3/uL (140-440); RBC 4.22 X 10*6/uL (4.10-5.20); RDW 12.1 % (11.5-14.5); WBC 12.25 X 10*3/uL (4.50-10.00)
[2022-09-10 22:32] LABS: ALT 12 U/L (8-44); AST 15 U/L (13-35); Albumin 4.4 d/dL (3.8-4.9); Albumin/Globulin Ratio 1.76 Ratio (1.60-3.17); Alkaline Phosphatase 66 U/L (41-126); BUN/Creat Ratio 25.14 Ratio (12.00-20.00); Blood Urea Nitrogen 17.6 mg/dL (9.0-27.0); Calcium 9.8 mg/dL (8.7-10.3); Carbon Dioxide 22.6 mmol/L (21.6-31.8); Chloride 106 mmol/L (96-109); Globulin 2.5 d/dL (1.6-3.3); Glucose 83 mg/dL (70-110); Iron 50 UG/DL (50-170); Potassium 3.9 mmol/L (3.5-5.5); Sodium 140 mmol/L (135-145); Total Bilirubin 0.3 mg/dL (0.3-1.2); Total Protein 6.9 d/dL (6.2-8.2)
== END | disposition home or self-care (01) ==
LOC: LABPAT 16:02
PROVIDERS: ATTEND Surgery
DX: E66.01 Morbid (severe) obesity due to excess calories (principal); K90.89 Other intestinal malabsorption; E55.9 Vitamin D deficiency, unspecified
CPT/HCPCS: 80053; 82306; 82607; 82746; 83540; 84425; 85027

== ENCOUNTER → 2022-09-10 | Outpatient (CLI) | payer BC ==
[2022-09-10 14:23] VITALS: BP 106/69; PULSE 60; RESP 16; TEMP 99.3; BMI 35.1
--- NOTE | 2022-09-10 17:50 | P.BASOAP ---
Subjective Progress Note Date: 09/10/22 Principal diagnosis: Morbid obesity Patient returns after sleeve gastrectomy in February. Last seen 1 month ago. Doing well. Taking antacids once daily at 20 mg. She says she needs a refill. She has no heartburn however. She has lost 13 pounds. She is due for 6 month labs. Objective - Vital Signs Vital signs: Vital Signs Temp 99.3 F 09/10/22 14:20 Pulse 60 09/10/22 14:20 Resp 16 09/10/22 14:20 BP 106/69 09/10/22 14:20 Pulse Ox FiO2 Intake & Output 09/09/22 09/10/22 09/10/22 18:59 06:59 18:59 Weight 100.244 kg - Exam Abdomen: Soft, nontender, nondistended Assessment/Plan (1) Morbid obesity Narrative/Plan: Patient doing well postoperative. Check 6 month labs. We'll provide refill for 20 mg daily of result. She will try taking every other day for a while and see how she tolerates that. Follow-up 6 weeks. Plan: Date: 09/10/22 Initial Weight: 141.691 kg Initial BMI: 49.6 Current Weight: 100.244 kg Current BMI: 35.1 Type of Surgery: Vertical Sleeve Gastrectomy Total Volume in Band: Previous Volume: Volume Removed: Volume Added: Band Size:
== END ==
LOC: BARWHC3 13:58
PROVIDERS: ATTEND Surgery
DX: E66.01 Morbid (severe) obesity due to excess calories (principal); Z68.35 Body mass index [BMI] 35.0-35.9, adult
CPT/HCPCS: 97803; 99211

== ENCOUNTER → 2022-11-12 | Outpatient (CLI) | payer BC ==
--- NOTE | 2022-11-12 14:12 | P.BASOAP ---
Subjective Progress Note Date: 11/12/22 Principal diagnosis: Morbid obesity Patient is doing well today. Was last seen 09/10. Started taking her antiacids every other day and is doing well with that. No heartburn. No nausea or vomiting. Still exercising. Her 6 month labs were reviewed. Her white blood cell count was minimally elevated otherwise all labs fairly normal. Objective - Exam Abdomen: Soft, nontender, nondistended Assessment/Plan (1) Morbid obesity Narrative/Plan: Patient doing well at this time. Continue dietary and exercise regimen. Trial of discontinuation of antiacids. Follow-up 6-8 weeks. Plan: Date: Initial Weight: 141.691 kg Initial BMI: Current Weight: Current BMI: Type of Surgery: Total Volume in Band: Previous Volume: Volume Removed: Volume Added: Band Size:
[2022-11-12 14:29] VITALS: BP 106/69; PULSE 64; RESP 13; TEMP 98.4; BMI 33.4
== END | disposition home or self-care (01) ==
LOC: BARWHC3 13:53
PROVIDERS: ATTEND Surgery
DX: E66.01 Morbid (severe) obesity due to excess calories (principal); Z71.3 Dietary counseling and surveillance; Z68.33 Body mass index [BMI] 33.0-33.9, adult
CPT/HCPCS: 99211

== ENCOUNTER → 2023-01-07 | Outpatient (CLI) | payer BC ==
--- NOTE | 2023-01-07 15:08 | P.BASOAP ---
Subjective Progress Note Date: 01/07/23 Principal diagnosis: Morbid obesity Patient returns for recheck. She was last seen 11/12. Patient stopped her antiacids. In late November patient started having increased heartburn and nausea. She noticed decreased fluid intake. She was also having some pain. She started her antiacids back and her symptoms shortly resolved. No fevers. Doing well currently. She has not had any pain or heartburn for the last 2 weeks. Objective - Vital Signs Vital signs: Vital Signs Temp 98.9 F 01/07/23 14:42 Pulse 66 01/07/23 14:42 Resp 16 01/07/23 14:42 BP 104/61 01/07/23 14:42 Pulse Ox FiO2 Intake & Output 01/06/23 01/07/23 01/07/23 18:59 06:59 18:59 Weight 92.533 kg - Exam Abdomen: Soft, nontender, nondistended Assessment/Plan (1) Morbid obesity Narrative/Plan: 32-year-old female doing well after previously gastrectomy. She has lost over 100 pounds. She feels well. Continue antiacids. Continue dietary and exercise regimen. Follow-up 6 weeks. Likely will check one year labs in March. Plan: Date: 01/07/23 Initial Weight: 141.691 kg Initial BMI: 49.6 Current Weight: 92.533 kg Current BMI: 32.4 Type of Surgery: Vertical Sleeve Gastrectomy Total Volume in Band: Previous Volume: Volume Removed: Volume Added: Band Size:
[2023-01-07 15:10] VITALS: BP 104/61; PULSE 66; RESP 16; TEMP 98.9; BMI 32.4
== END ==
LOC: BARWHC3 14:11
PROVIDERS: ATTEND Surgery
DX: E66.01 Morbid (severe) obesity due to excess calories (principal); Z71.3 Dietary counseling and surveillance; Z98.84 Bariatric surgery status; Z68.32 Body mass index [BMI] 32.0-32.9, adult
CPT/HCPCS: 99211

== ENCOUNTER → 2023-02-25 | Outpatient (CLI) | payer BC ==
--- NOTE | 2023-02-25 14:51 | P.BASOAP ---
Subjective Progress Note Date: 02/25/23 Principal diagnosis: Morbid obesity Patient doing well at this time. She has lost 3 pounds since her last visit. She is now on omeprazole every other day. No nausea or vomiting. No pain. Objective - Vital Signs Vital signs: Vital Signs Temp 98.1 F 02/25/23 14:42 Pulse Resp 16 02/25/23 14:42 BP 130/68 02/25/23 14:42 Pulse Ox FiO2 Intake & Output 02/24/23 02/25/23 02/25/23 18:59 06:59 18:59 Weight 91.172 kg - Exam Abdomen: Soft, nontender, nondistended Assessment/Plan (1) Morbid obesity Narrative/Plan: Patient doing well at this one year appointment. Continue dietary and exercise regimen. Continue every other day antiacids. Check one year labs. Follow-up 6 months. Plan: Date: 02/25/23 Initial Weight: 141.691 kg Initial BMI: Current Weight: 91.172 kg Current BMI: Type of Surgery: Vertical Sleeve Gastrectomy Total Volume in Band: Previous Volume: Volume Removed: Volume Added: Band Size:
[2023-02-25 14:59] VITALS: BP 113/68; PULSE 76; RESP 16; TEMP 97.8; BMI 31.9
[2023-02-25 18:39] LABS: HCT 38.3 % (37.2-46.3); HGB 12.5 g/dL (12.0-15.0); MCH 30.6 pg (27.0-32.0); MCHC 32.6 g/dL (32.0-37.0); MCV 93.9 FL (80.0-97.0); Mean Platelet Volume 10.4 FL (9.5-12.2); NRBC Per 100 WBC 0 X 10*3/uL (0.00-0.01); Platelet Count 272 X 10*3/uL (140-440); RBC 4.08 X 10*6/uL (4.10-5.20); WBC 8.38 X 10*3/uL (4.50-10.00)
[2023-02-25 19:07] LABS: ALT 11 U/L (8-44); AST 11 U/L (13-35); Albumin 4.3 g/dL (3.8-4.9); Albumin/Globulin Ratio 1.72 Ratio (1.60-3.17); Alkaline Phosphatase 58 U/L (41-126); BUN/Creat Ratio 18.78 Ratio (12.00-20.00); Blood Urea Nitrogen 16.9 mg/dL (9.0-27.0); Calcium 9.8 mg/dL (8.7-10.3); Carbon Dioxide 25.5 mmol/L (21.6-31.8); Chloride 107 mmol/L (96-109); Globulin 2.5 g/dL (1.6-3.3); Glucose 64 mg/dL (70-110); Iron 98 UG/DL (50-170); Potassium 3.7 mmol/L (3.5-5.5); Sodium 143 mmol/L (135-145); Total Bilirubin 0.4 mg/dL (0.3-1.2); Total Protein 6.8 g/dL (6.2-8.2)
== END ==
LOC: BARWHC3 14:37
PROVIDERS: ATTEND Surgery
DX: E66.01 Morbid (severe) obesity due to excess calories (principal); E55.9 Vitamin D deficiency, unspecified; K90.89 Other intestinal malabsorption; Z68.45 Body mass index [BMI] 70 or greater, adult; Z71.3 Dietary counseling and surveillance
CPT/HCPCS: 80053; 82306; 82607; 82746; 83540; 84425; 85027; 99211

== ENCOUNTER → 2023-08-19 | Outpatient (CLI) | payer BC ==
[2023-08-19 14:08] VITALS: BP 107/59; PULSE 68; RESP 16; TEMP 97.9; BMI 30.7
--- NOTE | 2023-08-19 14:20 | P.BASOAP ---
Subjective Progress Note Date: 08/19/23 Principal diagnosis: Morbid obesity Patient returns for recheck. She was last seen in February. In February that was her 1 year follow-up. Her in 1 year labs look great. Still taking antiacids every other day. She tried stopping them again but had vague upper abdominal discomfort that went away when she went back on them. While taking the every other day antiacids denies heartburn. No nausea or vomiting. She has lost 8 pounds in the last 6 months. Objective - Vital Signs Vital signs: Vital Signs Temp 97.9 F 08/19/23 14:05 Pulse 68 08/19/23 14:05 Resp 16 08/19/23 14:05 BP 107/59 08/19/23 14:05 Pulse Ox FiO2 Intake & Output 08/18/23 08/19/23 08/19/23 18:59 06:59 18:59 Weight 87.543 kg - Exam Abdomen: Soft, nontender, nondistended Assessment/Plan (1) Morbid obesity Narrative/Plan: Patient doing well at this time. Continue dietary and exercise regimen. Return visit in February for 2-year follow-up. Plan: Date: 08/19/23 Initial Weight: 141.691 kg Initial BMI: 49.6 Current Weight: 87.543 kg Current BMI: 30.7 Type of Surgery: Vertical Sleeve Gastrectomy Total Volume in Band: Previous Volume: Volume Removed: Volume Added: Band Size:
== END ==
LOC: BARWHC3 13:55
PROVIDERS: ATTEND Surgery
DX: E66.01 Morbid (severe) obesity due to excess calories (principal); R10.10 Upper abdominal pain, unspecified; Z71.3 Dietary counseling and surveillance; Z90.3 Acquired absence of stomach [part of]; Z98.84 Bariatric surgery status; Z68.30 Body mass index [BMI] 30.0-30.9, adult
CPT/HCPCS: 99211

== ENCOUNTER → 2024-02-17 | Outpatient (CLI) | payer BC ==
--- NOTE | 2024-02-17 15:01 | P.BASOAP ---
Subjective Progress Note Date: 02/17/24 Principal diagnosis: Morbid obesity Patient returns for recheck. Last seen 6 months ago. Doing well. Still taking antiacids usually every other day. She did gain 9 pounds during the holiday stretch. Says she was exercising a bit less and picking at different foods more. She is due for lab work. Objective - Exam Abdomen: Soft, nontender, nondistended Assessment/Plan (1) Morbid obesity Narrative/Plan: Patient doing well at this time. Continue dietary and exercise regimen. Check 2-year labs. Continue antiacids every other day. Follow-up 6 months. Plan: Date: Initial Weight: 141.691 kg Initial BMI: Current Weight: Current BMI: Type of Surgery: Total Volume in Band: Previous Volume: Volume Removed: Volume Added: Band Size:
[2024-02-17 15:09] VITALS: BP 107/80; PULSE 74; TEMP 98.1; BMI 32.1
[2024-02-17 18:32] LABS: HCT 40.6 % (37.2-46.3); HGB 12.6 g/dL (12.0-15.0); MCH 29.7 pg (27.0-32.0); MCV 95.8 FL (80.0-97.0); Mean Platelet Volume 10.6 FL (9.5-12.2); NRBC Per 100 WBC 0 X 10*3/uL (0.00-0.01); Platelet Count 313 X 10*3/uL (140-440); RBC 4.24 X 10*6/uL (4.10-5.20); RDW 11.3 % (11.5-14.5); WBC 9.61 X 10*3/uL (4.50-10.00)
[2024-02-17 19:31] LABS: ALT 11 U/L (8-44); AST 12 U/L (13-35); Albumin 4.4 g/dL (3.8-4.9); Albumin/Globulin Ratio 1.76 Ratio (1.60-3.17); Alkaline Phosphatase 56 U/L (41-126); Blood Urea Nitrogen 14.3 mg/dL (9.0-27.0); Calcium 9.4 mg/dL (8.7-10.3); Carbon Dioxide 26.6 mmol/L (21.6-31.8); Chloride 105 mmol/L (96-109); Globulin 2.5 g/dL (1.6-3.3); Glucose 83 mg/dL (70-110); Iron 49 UG/DL (50-170); Sodium 141 mmol/L (135-145); Total Bilirubin <0.2 mg/dL (0.3-1.2); Total Protein 6.9 g/dL (6.2-8.2)
== END ==
LOC: BARWHC3 14:44
PROVIDERS: ATTEND Surgery
DX: E66.01 Morbid (severe) obesity due to excess calories (principal); K21.9 Gastro-esophageal reflux disease without esophagitis; Z71.3 Dietary counseling and surveillance; Z68.31 Body mass index [BMI] 31.0-31.9, adult
CPT/HCPCS: 80053; 82306; 82607; 82746; 83540; 84425; 85027; 99211